=== PATIENT | male | born 1985 | race Caucasian/White ===

== ENCOUNTER → 2018-09-08 | Outpatient (CLI) | payer MEDICAID ==
--- NOTE | 2018-09-08 10:59 | XR ---
EXAMINATION TYPE: XR chest 2V DATE OF EXAM: 09/08/2018 COMPARISON: 05/17/2014 HISTORY: Chest pain TECHNIQUE: Frontal and lateral views of the chest are obtained. FINDINGS: There is no focal air space opacity. No evidence for pneumothorax. No pleural effusion. The cardiac silhouette size is within normal limits. The osseous structures are grossly intact. IMPRESSION: 1. No acute cardiopulmonary process.
== END | disposition home or self-care (01) ==
LOC: RADXRMAIN 10:33
PROVIDERS: ATTEND Physician Assistant
DX: R07.9 Chest pain, unspecified (principal)
CPT/HCPCS: 71046

== ENCOUNTER → 2019-04-24 | Outpatient (CLI) | payer MEDICAID ==
--- NOTE | 2019-04-24 10:41 | P.STRESS ---
- Stress Test Note Stress Test Results/Findings: Exam Performed: stress echo exercise Exam Date: 04/24/19 Reason for Exam: cp Height: 5 ft 10 in Weight: 85.729 kg Protocol: sandra Stage: 5 Duration of Exercise: 14 min Resting Heart Rate: 63 Resting Blood Pressure: 92/49 Maximum Achieved Heart Rate: 174 Maximum Achieved Blood Pressure: 141/41 85% PMHR: 160 100% PMHR: 188 METS: 14.7 Technologist Comment: Stress Test Results/Findings: Baseline heart is 63 beats a minute, Baseline blood pressure 92/49 mmHg Baseline twelve-lead ECG shows sinus rhythm with normal cardiac intervals normal ST segments Patient exercised on a Sandra protocol for 14 minutes achieving a peak heart rate of 174 beats a minute normal blood pressure response to exercise There was trace agents for ischemia no arrhythmias noted Baseline 2-D echo images showed normal LV size and systolic function without segmental wall motion abnormalities At peak exercise there was excellent augmentation of overall LV contractility, without development of any wall motion abnormalities At the recovery lesion and global LV systolic function remain normal Impression Excellent exercise capacity with normal heart rate and blood pressure response to exercise No ECG or echocardiographic evidence for ischemia
== END | disposition home or self-care (01) ==
LOC: RADNMMAIN 09:12
PROVIDERS: ATTEND Family Medicine
DX: R07.9 Chest pain, unspecified (principal)
CPT/HCPCS: 93351

== ENCOUNTER → 2020-09-03 | Outpatient (CLI) | payer MEDICAID | END | disposition home or self-care (01) | LOC: LABWHC1 09:48 | PROVIDERS: ATTEND Nurse Practitioner | DX: Z20.828 Contact with and (suspected) exposure to other viral communicable diseases (principal) | CPT/HCPCS: U0003; C9803 ==

== ENCOUNTER → 2025-01-08 | Outpatient (CLI) | payer BC ==
--- NOTE | 2025-01-08 07:32 | CT ---
EXAMINATION TYPE: CT ankle LT wo con DATE OF EXAM: 01/08/2025 COMPARISON: None. HISTORY: left ankle fracture CT DLP: 296.1 mGycm Automated exposure control for dose reduction was used. CONTRAST: Performed without contrast. FINDINGS: There is acute comminuted nondisplaced fracture through the inferior posterior medial portion of the calcaneus. Boehler's angle is maintained. Mild to moderate subcutaneous edema posterior and inferior to the calcaneus is noted. No additional acute or subacute fracture of the left ankle. Ankle mortise symmetry is maintained. Vi sualized Achilles tendon is intact. Normal sinus tarsi fat is seen. IMPRESSION: ABOVE. ACUTE COMMINUTED NONDISPLACED FRACTURE OF THE POSTERIOR MEDIAL INFERIOR CALCANEUS IS NOTED. [facility], , 01/08/2025 7:30 AM
== END | disposition home or self-care (01) ==
LOC: RADCTMAIN 06:49
PROVIDERS: ATTEND Podiatrist
DX: S92.015A Nondisplaced fracture of body of left calcaneus, initial encounter for closed fracture (principal); X58.XXXA Exposure to other specified factors, initial encounter